=== PATIENT | male | born 2005 | race Caucasian/White ===

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

== ENCOUNTER 2024-07-24 22:35 | Emergency (ER) | payer OTHER ==
--- NOTE | 2024-07-24 23:24 | ED ---
General Adult HPI - General Chief complaint: Dizziness Stated complaint: Syncope Time Seen by Provider: 07/24/24 22:49 Source: patient Mode of arrival: ambulatory Limitations: no limitations - History of Present Illness Initial comments: Patient is a 19-year-old gentleman with past medical history of "PVCs presenting today for dizziness and near syncope. Patient's mother states that the patient has had a recent stressful event in his life and that his grandmother who he was very close with about 1 week ago. Today the patient was standing and t alking to his mother about arrangements for his grandmother when he began to feel very lightheaded and then felt like the room was spinning, he tried to walk forward and then stumbled to the side, stumbled again and then sat down on the ground. He did not hit his head. Patient endorsed chest tightness and shortness of breath and feeling like all of his extremities went numb. His mother checked his blood sugar and it was 107, measured his blood pressure while he was seated, blood pressure initially was 170/120, blood pressure 156/97, and then pressure was lower the patient's mother was unsure exactly what it was. States that his heart rate was lower when his blood pressure was prior. Patient symptoms have since resolved. Patient ate pizza, Pasta salad and cereal today. He smokes marijuana 2-3x a day last time he smoked was about 4 PM this afternoon. Pt states that similar episode occurred about 1 week ago while he was at work and has happened intermittently over the last 2 years, states he has been seen multiple times in the past for similar, though has not followed up w ith his PCP. No family history of sudden cardiac . On patient's father side of the the patient's father had a heart attack at the age of 37. No known family history PE/DVT. No recent travel, surgery or hospitalizations. No recent alcohol use. No LE swelling or hemoptysis. - Related Data Home Medications Medication Instructions Recorded Confirmed EPINEPHrine [Epipen 2-Pranav] 0.3 mg IM ONCE PRN 04/30/16 06/16/17 Previous Rx's Medication Instructions Recorded methylPREDNISolone [Medrol Dose 4 mg PO DIRECTED #1 pack 04/19/19 Pack] predniSONE [Deltasone] 20 mg PO BID #6 tab 11/17/21 Famotidine [Pepcid] 20 mg PO BID #28 tablet 09/14/22 Ibuprofen [Motrin] 800 mg PO Q8HR PRN #30 tab 09/14/22 Ondansetron Odt [Zofran Odt] 4 mg PO Q8HR PRN #10 tab 09/14/22 Pantoprazole [Protonix] 40 mg PO DAILY #14 tab 09/14/22 Allergies Allergy/AdvReac Type Severity Reaction Status Date / Time peanut Allergy Anaphylaxis Verified 11/17/21 19:58 Review of Systems ROS Statement: Those systems with pertinent positive or pertinent negative responses have been documented in the HPI. ROS Other: All systems not noted in ROS Statement are negative. Past Medical History Past Medical History: Asthma Additional Past Medical History / Comment(s): PVCs History of Any Multi-Drug Resistant Organisms: None Reported Past Surgical History: No Surgical Hx Reported Past Psychological History: Anxiety Smoking Status: Never smoker Past Alcohol Use History: None Reported Past Drug Use History: None Reported General Exam - General Exam Comments Initial Comments: PE: CONSTITUTIONAL: No apparent distress, well appearing SKIN: Warm, dry, no jaundice, hives or petechiae EYES: Pupils are equally round, extraocular movements intact without nystagmus, clear conjunctiva, non-icteric sclera HENT: Normocephalic, atraumatic, moist mucus membranes, oropharynx clear without exudates NECK: , Full range of motion, normal appearance PULMONARY: Clear to auscultation without wheezes, rhonchi, or rales, normal excursion, no accessory muscle use and no stridor CARDIOVASCULAR: Regular rate, rhythm, normal S1 and S2. No appreciated murmurs, rubs or gallops. Strong and equal radial pulses with intact distal perfusion. No lower extremity edema, no carotid bruits GASTROINTESTINAL: Soft, active bowel sounds throughout, non-tender, non- distended, no palpable masses, no rebound or guarding. No hepatosplenomegaly GENITOURINARY: MUSCULOSKELETAL: Extremities have no gross deformity, no edema, redness, or swelling. No calf swelling NEUROLOGIC:_a/o x 3, GCS 15, normal mentation and speech. 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 ] Pulse Rate [ 58 L Right Supine] Respiratory 17 Rate Blood Pressure 117/86 Blood Pressure 136/80 [Left Arm Sitting] Blood Pressure [Left Arm Standing] Blood Pressure 121/78 [Left Arm Supine] O2 Sat by Pulse 98 Oximetry 07/24/24 07/25/24 23:41 02:19 Temperature 98.6 F Pulse Rate 87 Pulse Rate [ Right Sitting] Pulse Rate [ 82 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 sent in by a medical professional or institution (, PA, BILINGUAL SALES CONSULTANT, urgent care, hospital, or residential...) When possible be specific @ -No Did you speak to anyone other than the patient for history (EMS, parent, family, police, friend...)? What history was obtained from this source Spoke with patient's mother who assisted in providing history and family history Did you review nursing and triage notes (agree or disagree)? Why? @ -I reviewed nursing and triage notes Were old charts reviewed (outside hosp., previous admission, EMS record, old EKG, old radiological studies, urgent care reports/EKG's, residential records)? Report findings @ -Medical records reviewed-Patient had an echocardiogram done in 2019, which patient mother states was for similar issues, reviewed report, was interpreted as a normal study without cardiac disease Differential Diagnosis (chest pain, altered mental status, abdominal pain women, abdominal pain men, vaginal bleeding, weakness, fever, dyspnea, syncope, headache, dizziness, GI bleed, back pain, seizure, CVA, palpatations, mental health, musculoskeletal)? Differential diagnosis remains broad however top considerations include valvular disease, hypertrophic cardiomyopathy, PE, arrhythmia, ACS, orthostatic hypotension, anemia, electrolyte abnormality, hypoglycemia abuse, emotional stress reaction this is not all-inclusive list EKG interpreted by me (3pts min.). @ -As above X-rays interpreted by me (1pt min.). @I personally reviewed chest x-ray see no evidence of cardiomegaly, pleural effusions or consolidations, I agree with radiologist interpretation CT interpreted by me (1pt min.). @ -None done U/S interpreted by me (1pt. min.). @ -None done What testing was considered but not performed or refused? (CT, X-rays, U/S, labs )? Why? @ -None What meds were considered but not given or refused? Why? Meclizine was offered for dizziness, as well as hydroxyzine, patient declined both of these, and was ultimately agreeable to trialing a dose of Xanax Did you discuss the management of the patient with other professionals (zulay white i.e. , PA, BILINGUAL SALES CONSULTANT, lab, RT, psych nurse, hospital social worker, pharmacist assistant, teacher, information security officer, family independence case manager)? Give summary @ -No Was smoking cessation discussed for >3mins.? @ -No Was critical care preformed (if so, how long)? @ -No Were there social determinants of health that impacted care today? How? (Homelessness, low income, unemployed, alcoholism, drug addiction, transportation, low edu. Level, literacy, decrease access to med. care, retirement, rehab)? @ -No Was there de-escalation of care discussed even if they declined (Discuss DNR or withdrawal of care, Hospice)? @ -No What co-morbidities impacted this encounter? (DM, HTN, Smoking, COPD, CAD, Cancer, CVA, ARF, Chemo, Hep., AIDS, mental health diagnosis, sleep apnea, morbid obesity)? @ -None Was patient admitted / discharged? Hospital course, mention meds given and route, prescriptions, significant lab abnormalities, going to OR and other pertinent info. @Discharged-patient is a healthy 19-year-old male, hx "PVCs" presenting today for dizziness and presyncopal episode without LOC. Vital signs on acceptable limits on arrival. EKG reassuring. Plan for broad workup including heart enzyme, D-dimer, BNP, CBC, comp. Will provide with IV fluids. Labs and imaging reviewed. Grossly within normal limits. Abnormal values not concerning for acute pathology related to presenting complaint. Patient endorsed intermittent symptoms and noted concern that his heart rate was decreasing into the 50s on telemetry while at rest. I was in the room when this occurred and patient remained awake and alert, conversant, with telemetry consistent with normal sinus rhythm. He was offered medications for dizziness or anxiety given recent stressful life events. Patient declined medications initially but was willing to trial xanax. On reassessment he endorsed improvement of symptoms. Discussed with patient reassuring workup today and the importance of close follow up with his PCP for continued monitoring and management. Advised patient to eat regular meals and decrease his marijuana use. Patient understanding and agreeable with POC. In my medical judgment there is currently no evidence of an immediate life- threatening or surgical condition. Discharge is therefore indicated at this time. Discharge treatment instructions, follow up instructions, and appropriate emergency department return precautions were discussed with the patient and/or medical decision maker. Patient and/or medical decision maker expressed understanding of and agreed with the treatment plan, follow up instructions, and emergency department return precaution. All patient's and/or medical decision maker's questions were answered. The patient was advised that a small risk still exists that a serious condition could develop and was therefore instructed to return to the ED for any changes in symptoms, persistent symptoms, inability to obtain proper follow-up or for any further concerns. Patient received verbal and written instructions for this condition. Undiagnosed new problem with uncertain prognosis? @ -No Drug Therapy requiring intensive monitoring for toxicity (Heparin, Nitro, Insulin, Cardizem)? @ -No Were any procedures done? @ -No Diagnosis/symptom? Dizziness, near syncope Acute, or Chronic, or Acute on Chronic? @ acute Uncomplicated (without systemic symptoms) or Complicated (systemic symptoms)? complicated Side effects of treatment? @ -No Exacerbation, Progression, or Severe Exacerbation? @ -No Poses a threat to life or bodily function? How? (Chest pain, [place], [place], pneumonia, PE, COPD, DKA, ARF, appy, cholecystitis, CVA, Diverticulitis, Homicidal, Suicidal, threat to staff... and all critical care pts) @ -No - Lab Data Result diagrams: 07/24/24 23:26 07/24/24 23:00 Lab Results 07/24/24 07/24/24 07/24/24 Range/Units 23:00 23:00 23:26 WBC 9.5 (3.8-10.6) k/uL RBC 5.55 (4.30-5.90) m/uL Hgb 15.6 (13.0-17.5) gm/dL Hct 46.1 (39.0-53.0) % MCV 83.0 (80.0-100.0) fL MCH 28.1 (25.0-35.0) pg MCHC 33.8 (31.0-37.0) g/dL RDW 13.2 (11.5-15.5) % Plt Count 281 (150-450) k/uL MPV 7.6 Neutrophils % 68 % Lymphocytes % 22 % Monocytes % 5 % Eosinophils % 3 % Basophils % 0 % Neutrophils # 6.4 (1.3-7.7) k/uL Lymphocytes # 2.1 (1.0-4.8) k/uL Monocytes # 0.5 (0-1.0) k/uL Eosinophils # 0.2 (0-0.7) k/uL Basophils # 0.0 (0-0.2) k/uL PT (10.0-12.5) sec INR (<1.2) APTT (22.0-30.0) sec D-Dimer (<0.60) mg/L FEU Sodium 139 (137-145) mmol/L Potassium 4.1 (3.5-5.1) mmol/L Chloride 102 (98-107) mmol/L Carbon Dioxide 27 (22-30) mmol/L Anion Gap 10 mmol/L BUN 10 (9-20) mg/dL Creatinine 0.86 (0.66-1.25) mg/dL Est GFR (CKD-EPI)AfAm >90 (>60 ml/min/1.73 sqM) Est GFR (CKD-EPI)NonAf >90 (>60 ml/min/1.73 sqM) Glucose 94 (74-99) mg/dL POC Glucose (mg/dL) (70-110) mg/dL POC Glu Cabinet Worker ID Calcium 9.9 (8.4-10.2) mg/dL Magnesium 1.9 (1.6-2.3) mg/dL Total Bilirubin 0.5 (0.2-1.3) mg/dL AST 23 (17-59) U/L ALT 45 (4-49) U/L Alkaline Phosphatase 52 (38-126) U/L Troponin I <0.012 (0.000-0.034) ng/mL NT-Pro-B Natriuret Pep 25 pg/mL Total Protein 7.4 (6.3-8.2) g/dL Albumin 4.8 (3.5-5.0) g/dL 07/24/24 07/24/24 Range/Units 23:26 23:48 WBC (3.8-10.6) k/uL RBC (4.30-5.90) m/uL Hgb (13.0-17.5) gm/dL Hct (39.0-53.0) % MCV (80.0-100.0) fL MCH (25.0-35.0) pg MCHC (31.0-37.0) g/dL RDW (11.5-15.5) % Plt Count (150-450) k/uL MPV Neutrophils % % Lymphocytes % % Monocytes % % Eosinophils % % Basophils % % Neutrophils # (1.3-7.7) k/uL Lymphocytes # (1.0-4.8) k/uL Monocytes # (0-1.0) k/uL Eosinophils # (0-0.7) k/uL Basophils # (0-0.2) k/uL PT 11.1 (10.0-12.5) sec INR 1.0 (<1.2) APTT 24.7 (22.0-30.0) sec D-Dimer <0.17 (<0.60) mg/L FEU Sodium (137-145) mmol/L Potassium (3.5-5.1) mmol/L Chloride (98-107) mmol/L Carbon Dioxide (22-30) mmol/L Anion Gap mmol/L BUN (9-20) mg/dL Creatinine (0.66-1.25) mg/dL Est GFR (CKD-EPI)AfAm (>60 ml/min/1.73 sqM) Est GFR (CKD-EPI)NonAf (>60 ml/min/1.73 sqM) Glucose (74-99) mg/dL POC Glucose (mg/dL) 104 (70-110) mg/dL POC Glu Cabinet Worker ID Maral Vannesa Calcium (8.4-10.2) mg/dL Magnesium (1.6-2.3) mg/dL Total Bilirubin (0.2-1.3) mg/dL AST (17-59) U/L ALT (4-49) U/L Alkaline Phosphatase (38-126) U/L Troponin I (0.000-0.034) ng/mL NT-Pro-B Natriuret Pep pg/mL Total Protein (6.3-8.2) g/dL Albumin (3.5-5.0) g/dL Disposition Clinical Impression: Dizziness Disposition: HOME SELF-CARE Condition: Good Instructions (If sedation given, give patient instructions): Dizziness (ED) Additional Instructions: Every disease is a spectrum and a small chance still exists that a serious condition could develop, for this reason, please monitor yourself closely for new, changing or worsening symptoms, symptoms that to not resolve in the next 48 hours, chest pain, episodes of passing out, severe headache, fever, inability to tolerate/keep down fluids or your medications, inability to follow up with outpatient providers as instructed and should you experience these symptoms or should you have any further concerns for your wellbeing please return to the ED or call 911 immediately. Please drink plenty fluids and get plenty of rest. Please decrease your marijuana use. Please eat regular meals throughout the day. If you start to feel dizziness, please find a calm, quiet place to sit down, perform deep breathing exercises, drink plenty noncaffeinated fluids. PLEASE call your primary care physician as soon as possible to arrange / discuss plan for followup appointment. Appointment in the next 1-3 days is strongly encouraged if possible. PLEASE let us know here before you leave if there is anything further we can do to be of any assistance. Take care and feel Better! Is patient prescribed a controlled substance at d/c from ED?: No Referrals: Lon Gray MD [Primary Care Provider] - 1-2 days
[2024-07-24 23:35] LABS: Basophils % (A) 0 %; Eosinophils # (A) 0.2 k/uL (0-0.7); Eosinophils % (A) 3 %; HCT 46.1 % (39.0-53.0); HGB 15.6 gm/dL (13.0-17.5); Lymphocytes # (A) 2.1 k/uL (1.0-4.8); Lymphocytes % (A) 22 %; MCH 28.1 pg (25.0-35.0); MCHC 33.8 g/dL (31.0-37.0); Mean Platelet Volume 7.6; Monocytes # (A) 0.5 k/uL (0-1.0); Monocytes % (A) 5 %; Neutrophils # (A) 6.4 k/uL (1.3-7.7); Neutrophils % (A) 68 %; Platelet Count 281 k/uL (150-450); RBC 5.55 m/uL (4.30-5.90); RDW 13.2 % (11.5-15.5); WBC 9.5 k/uL (3.8-10.6)
[2024-07-24 23:39] LABS: ALT 45 U/L (4-49); AST 23 U/L (17-59); African American GFR (CKD) >90 (>60 ml/min/1.73 sqM); Albumin 4.8 g/dL (3.5-5.0); Alkaline Phosphatase 52 U/L (38-126); Anion Gap 10 mmol/L; Blood Urea Nitrogen 10 mg/dL (9-20); Calcium 9.9 mg/dL (8.4-10.2); Carbon Dioxide 27 mmol/L (22-30); Chloride 102 mmol/L (98-107); Glucose 94 mg/dL (74-99); Magnesium 1.9 mg/dL (1.6-2.3); Non-African American GFR(CKD) >90 (>60 ml/min/1.73 sqM); Potassium 4.1 mmol/L (3.5-5.1); Sodium 139 mmol/L (137-145); Total Bilirubin 0.5 mg/dL (0.2-1.3); Total Protein 7.4 g/dL (6.3-8.2)
[2024-07-24] MEDS: SODIUM CHLORIDE 0.9% 1,000 ML IV STA (23:44)
[2024-07-24 23:48] LABS: NT-Pro-B-Type Natriuretic Pept 25 pg/mL
[2024-07-24 23:51] LABS: Glucose,Whole Blood 104 mg/dL (70-110)
[2024-07-24 23:57] LABS: Partial Thromboplastin Time 24.7 sec (22.0-30.0); Prothrombin Time 11.1 sec (10.0-12.5)
[2024-07-25] MEDS: ALPRAZolam 0.5 MG TAB PO STA (02:17)
[2024-07-25 02:21] VITALS: BP 124/86; PULSE 87; RESP 19; TEMP 98.6
--- NOTE | 2024-07-25 03:33 | XR ---
EXAM: XR Chest, 2 Views CLINICAL HISTORY: ITS.REASON XR Reason: near syncope, dizziness TECHNIQUE: Frontal and lateral views of the chest. COMPARISON: X-ray chest: 04/19/2019 FINDINGS: Lungs: No mass. No consolidation. Pleural space: No pleural effusion.. No pneumothorax. Heart: No cardiomegaly. Mediastinum: Unremarkable. Normal mediastinal contour. Bones/joints: Unremarkable. No acute fracture. IMPRESSION: No acute cardiopulmonary process. .
== END 2024-07-25 03:17 | disposition home or self-care (01) ==
LOC: EC 22:35
DX: R42 Dizziness and giddiness (principal); Z91.010 Allergy to peanuts
CPT/HCPCS: 36415; 71046; 80053; 83735; 83880; 84484; 85025; 85379; 85610; 85730; 96360; 99284